=== PATIENT | female | born 1945 | race Caucasian/White ===

== ENCOUNTER 2022-12-27 10:03 | Outpatient (AMB) | payer OTHER, SELFPAY ==
--- NOTE | 2022-12-27 10:07 | A.OFFVIS_ITS ---
Intake Vital Signs 12/27/22 10:09 Height 4 ft 9 in Weight 147 lb BMI 31.8 BP 110/70 Blood Pressure Location Rt brachial Position Sitting Pulse 71 Pulse Source Pulse Oximeter Pulse Oximetry (%) 97 Oxygen Delivery Method Room Air Intake Visit Reasons: ENP-Unsteady gait-Confirmed Intake Note: Patient presents for unsteady gait. Patient states ever since her passed shes been unsteady and needs to hold on to stuff and not holding her body weight. [facility] Allergies No Known Allergies Allergy (Verified 12/27/22 10:11) Medication List - Last Reconciled 12/27/22 by Maria L Estrada, RAMÓN cholecalciferol (vitamin D3) 50 mcg PO DAILY cyanocobalamin (vitamin B-12) 1,000 mcg PO DAILY glucosamine HCl 1,500 mg PO DAILY lisinopril 10 mg PO DAILY metoprolol succinate ER 12.5 mg PO DAILY HPI HPI Comments History of Present Illness Details Right-handed 77-yr-old female presents for neurological evaluation of: gait difficulties. Accompanied by her granddtr Claudette. Pt reports after her in June, she has been noticing increased whole body weakness, but when walking it is more leg weakness- like her legs won't hold her up, unsteadiness, needing to hold onto someone when brandon g up/down stairs. She has done PT and OT recently- and they have encouraged her to use a walker more. Prior to June, she was living with her in [place]. Her son was helping to care for her when he became ill. After her passed, she moved from [place] to [facility] to live w/ her dtr. She states that it is now more difficult to even stand up from a chair, the toilet, or from the car. Sometimes she has left hip or left leg pain. May have an occasional bilateral calf cramps. Patient endorses: Blurry vision in the am- x's approx 10 minutes. May have some brief stabbing chest pains when bending over. Some burning sensation in butch feet at night in bed- but during the day. Urinary incontinence- urge incontinence. Arthritis. Sleep difficulties- does not fall asleep until 1am and wakes up everyday at 6am- may nap. More cognitive difficulties following the lose of her - better since a UTI was tx'd, started on B-12 supplement. May occassionally have a R > L butch lateral leg muscle twitching. Has had some diarhea. And patient denies: Dizziness. Headaches. Dysphagia. BLE swelling, skin color changes. Orthostatic lightheadedness. Tremor PFSH Surgical History (Updated 12/27/22 @ 10:13 by ARELI Velasquez) H/O hernia repair Hx of cholecystectomy Family History (Updated 12/27/22 @ 10:14 by ARELI Velasquez) Father Cancer Mother HTN (hypertension) Social History (Updated 12/27/22 @ 10:14 by ARELI Velasquez) Alcohol intake: never Patient Tobacco Use Status: Never used Tobacco Review of Systems Const All systems reviewed & are unremarkable except as noted in HPI and below Physical Exam Vital Signs: Last Vital Signs Pulse 71 12/27/22 10:09 BP 110/70 12/27/22 10:09 Pulse Ox 97 12/27/22 10:09 Oxygen Delivery Method Room Air 12/27/22 10:09 BMI result Body Mass Index 31.8 Const General: cooperative and no acute distress Orientation/consciousness: patient oriented x3 HEENT Head: Yes normocephalic Resp Effort & Inspection: normal respiratory effort and able to speak in complete sentences Neuro Other: Slow to stand, short steps w/ low floor clearance, tentative but steady General: patient oriented x3, CN's II-XI intact bilaterally and deep tendon reflexes 2+ bilaterally Motor exam (neuro): 5/5 motor strength present throughout and Pronator motor function not present Psych Appearance: grossly normal Mental Status: mental status grossly normal Speech and movement: Normal speech and movement present Affect: normal affect Attitude: cooperative Thought process: Normal thought process present Assessment & Plan Assessment & Plan (1) Gait difficulty: Code(s): R26.9 - Unspecified abnormalities of gait and mobility (2) Decreased strength, endurance, and mobility: Code(s): R53.1 - Weakness; R68.89 - Other general symptoms and signs; Z74.09 - Other reduced mobility (3) Urinary incontinence: Code(s): R32 - Unspecified urinary incontinence (4) Memory difficulties: Code(s): R41.3 - Other amnesia Plan Pt is advised to undergo brain MRI w/wo to assess for signs of NPH, as pt has gait changes, urinary incontinence, and some cognitive difficulties- note that after the visit, pt's granddtr called and stated that pt does not want to undergo MRI at this time and asked us to cancel order for now. Will revisit need for brain MRI at f/u. Pt advised to start PT for gait, strength, endurance eval & tx. f/u in 3-4 months or sooner prn. Orders: Orders PT Evaluation and Treatment 12/27/22 R26.9 - Unspecified abnormalities of gait and mobility, R53.1 - Weakness, R68.89 - Other general symptoms and signs, Z74.09 - Other reduced mobility MR head/brain wo/w con 12/27/22 R26.9 - Unspecified abnormalities of gait and mobility, R32 - Unspecified urinary incontinence, R41.3 - Other amnesia, I10 - Essential (primary) hypertension Coding Level of Care Code New Pt Level 4 (11331) Diagnoses Gait difficulty R26.9 Decreased strength, endurance, and mobility R53.1; R68.89; Z74.09 Urinary incontinence R32 Memory difficulties R41.3
[2022-12-27 10:09] VITALS: BP 110/70; PULSE 71; O2SAT 97; BMI 31.8
== END 2022-12-27 11:09 | disposition home or self-care (01) ==
PROVIDERS: PCP Internal Medicine; Visit Provider Nurse Practitioner Family
DX: R26.9 Unspecified abnormalities of gait and mobility (principal); R53.1 Weakness; R68.89 Other general symptoms and signs; Z74.09 Other reduced mobility; R32 Unspecified urinary incontinence; R41.3 Other amnesia
CPT/HCPCS: 99204

== ENCOUNTER → 2022-12-27 10:03 | Outpatient (BNVA) | payer OTHER, SELFPAY | PROVIDERS: PCP Internal Medicine; Visit Provider Nurse Practitioner Family ==

== ENCOUNTER 2023-04-12 11:11 | Outpatient (AMB) | payer OTHER, SELFPAY ==
[2023-04-12 11:28] VITALS: BP 122/74; PULSE 72; O2SAT 98; BMI 31.8
--- NOTE | 2023-04-12 11:28 | MHC.OFFVIS ---
Intake Vital Signs 04/12/23 11:28 Height 4 ft 9 in Weight 147 lb BMI 31.8 BP 122/74 Blood Pressure Location Rt brachial Position Sitting Pulse 72 Pulse Source Pulse Oximeter Pulse Oximetry (%) 98 Oxygen Delivery Method Room Air Intake Visit Reasons: 3 mo f/u-Unsteady gait-Conf w/[facility] Intake Note: Patient presents for 3 month follow up unsteady gait. She's loosing balance hold on to everything, feels like someone is pulling her back Allergies No Known Allergies Allergy (Verified 04/12/23 11:33) HPI HPI Comments History of Present Illness Details 78-yr-old female presents for f/u visit, accompanied by her dtr. Pt denies any significant interval medical changes. Pt is still having balance difficulties, feels like someone is pulling her backwards. She always uses her walker. When she uses the walker she does not feel pulled backwards. No interval falls. May have an occasional bit of dizziness. Sometimes her RLE shakes when steady. Sometimes may have leg cramps. Denies peripheral numbness or tingling. But yesterday told the PT that it feels that she is always, but especially at night, feels like she is wearing socks and has burning pain. No neck or low back pain. She feels generally weak. Everything feels heavier, such as carrying something heavier such as a plate with food. In the summer, she does walk outside most days, in the colder weather she is walking around the house. She just started PT yesterday- will do PT twice a week. PCP did order the head imaging- at [address] [place] [id number]- which is scheduled this week. PFSH Surgical History H/O hernia repair Hx of cholecystectomy Family History Father Cancer Mother HTN (hypertension) Social History Alcohol intake: never Patient Tobacco Use Status: Never used Tobacco Review of Systems Const All systems reviewed & are unremarkable except as noted in HPI and below Physical Exam Vital Signs: Last Vital Signs Pulse 72 04/12/23 11:28 BP 122/74 04/12/23 11:28 Pulse Ox 98 04/12/23 11:28 Oxygen Delivery Method Room Air 04/12/23 11:28 BMI result Body Mass Index 31.8 Const General: cooperative and no acute distress Orientation/consciousness: patient oriented x3 HEENT Head: Yes normocephalic Resp Effort & Inspection: normal respiratory effort and able to speak in complete sentences Neuro Other: Slow to stand, short steps w/ low floor clearance, tentative- reaches out to hold table- but steady General: patient oriented x3 and CN's II-XI intact bilaterally Cognition (Neuro): normal cognition Motor exam (neuro): 5/5 motor strength present throughout Deep tendon reflexes (DTR's): Right patellar reflex intensity grade: 2+ and Left patellar reflex intensity grade: 2+ Psych Appearance: grossly normal Mental Status: mental status grossly normal Speech and movement: Normal speech and movement present Affect: normal affect Attitude: cooperative Thought process: Normal thought process present Thought content: Normal thought content present Insight: Good insight present (Psych) Judgement: Good judgement present (Psych) Assessment & Plan Assessment & Plan (1) Gait difficulty: Code(s): R26.9 - Unspecified abnormalities of gait and mobility (2) Decreased strength, endurance, and mobility: Code(s): R53.1 - Weakness; R68.89 - Other general symptoms and signs; Z74.09 - Other reduced mobility (3) Urinary incontinence: Code(s): R32 - Unspecified urinary incontinence (4) Memory difficulties: Code(s): R41.3 - Other amnesia Plan Brain MRI as ordered- asked dtr to have results forwarded to us as well. Continue PT. Continue to use walker. Consider further work-up upon review of above. Monitor BLE burning, sensation of wearing socks. f/u in 3-4 months or sooner prn. Coding Level of Care Code Est Pt Level 3 (75076) Diagnoses Gait difficulty R26.9 Decreased strength, endurance, and mobility R53.1; R68.89; Z74.09 Urinary incontinence R32 Memory difficulties R41.3
== END 2023-04-12 12:04 | disposition home or self-care (01) ==
PROVIDERS: PCP Internal Medicine; Visit Provider Nurse Practitioner Family
DX: R26.9 Unspecified abnormalities of gait and mobility (principal); R53.1 Weakness; R68.89 Other general symptoms and signs; Z74.09 Other reduced mobility; R32 Unspecified urinary incontinence; R41.3 Other amnesia
CPT/HCPCS: 99213

== ENCOUNTER → 2023-04-12 11:11 | Outpatient (BNVA) | payer OTHER, SELFPAY | PROVIDERS: PCP Internal Medicine; Visit Provider Nurse Practitioner Family ==

== ENCOUNTER 2023-08-17 10:46 | Outpatient (AMB) | payer OTHER, SELFPAY ==
[2023-08-17 10:57] VITALS: BP 114/78; PULSE 80; O2SAT 97
--- NOTE | 2023-08-17 10:57 | A.OFFVIS_ITS ---
Vital Signs 08/17/23 10:57 Height 4 ft 9 in BP 114/78 Blood Pressure Location Rt brachial Position Sitting Pulse 80 Pulse Source Pulse Oximeter Pulse Oximetry (%) 97 Oxygen Delivery Method Room Air Intake Visit Reasons: 4 mnts f/u-CONF Intake Note: Patient presents for 4 months.Patient has neck pain for the past 2 days Allergies No Known Allergies Allergy (Verified 08/17/23 10:59) Medication List - Last Reconciled 08/17/23 by RAMÓN Connelly cholecalciferol (vitamin D3) 50 mcg PO DAILY cyanocobalamin (vitamin B-12) 1,000 mcg PO DAILY glucosamine HCl 1,500 mg PO DAILY lisinopril 10 mg PO DAILY metoprolol succinate ER 12.5 mg PO DAILY HPI Comments Details: 78-yr-old female presents for f/u visit, accompanied by her dtr Pt denies any significant interval medical history changes. Pt rpeorts she has been having bilateral posterior neck pain x's 2 days- denies recent fall, accident, infection. Pain is aching, non-radiating. She continues to have gait difficulties, feels like she is being pulled back. Feels easily tired. States she can feel her feet and ground when walking, but it can feel like the legs are not her own. Denies leg cramps. Denies freezing gait. Denies falls. Can be stiff and slow. Has non-radiating aching low back pain. Denies tremor, parasomnias, hallucinations. PT helped some. Using her walker helps. PFSH Surgical History H/O hernia repair Hx of cholecystectomy Family History Father Cancer Mother HTN (hypertension) Social History Alcohol intake: never Patient Tobacco Use Status: Never used Tobacco Review of Systems Const All systems reviewed & are unremarkable except as noted in HPI and below Physical Exam Vital Signs: Last Vital Signs Pulse 80 08/17/23 10:57 BP 114/78 08/17/23 10:57 Pulse Ox 97 08/17/23 10:57 Oxygen Delivery Method Room Air 08/17/23 10:57 Const General: cooperative and no acute distress Resp Effort & Inspection: normal respiratory effort and able to speak in complete sentences Neuro Other: General: A&O, responding appropraitely Expression: Ok Voice: Soft Tremor: None Finger-Nose- Intact, slower on right Tone: Mild RUE rigidity Dyskinesia: None FFM: Slightly decreased Foot taps: Slightly decreased, more difficulty on right Gait: Needs assist to stand, slight anterocollis, slight stoop, no arm swing, short steps w/ low floor clearance, multiple steps to turn. Psych: Pleasant affect. Neck: Bilateral posterio cervical tightness and tendernss, mild anterocollis. 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 COMPARISON: None. FINDINGS: BRAIN and EXTRA-AXIAL SPACES: The ventricles, cistern and sulci are diffusely prominent, consistent with generalized age-related atrophy. There is no intracranial hemorrhage, tumor or acute infarct. Small focal areas of susceptibility artifacts are seen within bilateral thalami representing old hemosiderin. Multiple patchy areas of hyperintense T2 and FLAIR signals are seen in the periventricular and subcortical white matters bilaterally as well as central chao, which are nonspecific but may represent chronic small vessels ischemic disease. Please correlate clinically. 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 EXTRACRANIAL SOFT TISSUES: Orbits are unremarkable. Paranasal sinuses and mastoids are unremarkable. BONES: Marrow signal is preserved. IMPRESSION: No acute intracranial pathology. Chronic findings described above. Assessment & Plan Assessment & Plan (1) Cervicalgia: Code(s): M54.2 - Cervicalgia Category: Medical (2) Low back pain: Code(s): M54.50 - Low back pain, unspecified Category: Medical (3) Low back pain: Code(s): M54.50 - Low back pain, unspecified Category: Medical (4) Gait difficulty: Code(s): R26.9 - Unspecified abnormalities of gait and mobility Category: Medical (5) Cervicalgia: Code(s): M54.2 - Cervicalgia Category: Medical Plan Brain MRI- no acute findings. Small focal areas of susceptibility artifacts are seen within bilateral thalami representing old hemosiderin. Multiple patchy areas of hyperintense T2 and FLAIR signals are seen in the periventricular and subcortical white matters bilaterally as well as central chao, which are nonspecific but may represent chronic small vessels ischemic disease. The hemosiderin findings in the bilateral thalami may be contributing to pt's gait difficulties- ? vascualr PDism- akinetic rigid sub-type. However, would like to further assess for musculoskeltal etiologies: Check c-spine and l-spine XR. Check BLE EMG/NCS. Future consideration- DaTscan, dopaminergic tx trial. For neck pain- May use OTC Ibuprofen. Try Diclofenac 1% gel to psoterior neck qid prn. May use warm pack x's 20 min prn. f/u upon reveiw of above and in-clinic in 6 months or sooner. Orders: Orders XR cervical spine 4V Today M54.2 - Cervicalgia, M54.50 - Low back pain, unspecified NE electromyogram (EMG) Today M54.50 - Low back pain, unspecified, R26.9 - Unspecified abnormalities of gait and mobility XR lumbar spine 4V min Today M54.2 - Cervicalgia, M54.50 - Low back pain, unspecified NE nerve conduction velocity Today M54.50 - Low back pain, unspecified, R26.9 - Unspecified abnormalities of gait and mobility Medications: New diclofenac sodium 1% (Arthritis Pain (diclofenac)) apply to back of neck 4 grams topical QID 30 days PRN 100 grams 3RF pain Scribe Plan - Not visible on output: Discussed importance of regular physical activity for management of PD s/s, such as walking, cycling, boxing. Discussed benefits of dopaminergic therapies, such as reduced tremor and improved motor symptoms. Discussed potential adverse effects of dopaminergic therapies, including but not limited to nause/GI upset, orthostatic lightheadedness, dyskineisas, sleepiness, hallucinations. Pt is advised to establish care with a data analytics developer due to slight increase risk of melanoma seen in patient's with Parkinson's disease. Coding Level of Care Code Est Pt Level 4 (00710) Diagnoses Cervicalgia M54.2 Low back pain M54.50 Gait difficulty R26.9
== END 2023-08-17 11:44 | disposition home or self-care (01) ==
PROVIDERS: PCP Internal Medicine; Visit Provider Nurse Practitioner Family
DX: M54.2 Cervicalgia (principal); M54.50 Low back pain, unspecified; R26.9 Unspecified abnormalities of gait and mobility
CPT/HCPCS: 99214

== ENCOUNTER → 2023-08-17 10:46 | Outpatient (BNVA) | payer OTHER, SELFPAY | PROVIDERS: PCP Internal Medicine; Visit Provider Nurse Practitioner Family ==